=== PATIENT | male | born 1960 | race Caucasian/White ===

== ENCOUNTER 2020-08-07 08:22 | Emergency (ER) | payer SELFPAY ==
[~2020-08-07] VITALS: Ht 185.4 cm; Wt 133.8 kg
[2020-08-07 09:24] VITALS: BP 170/91
== END 2020-08-07 09:58 | disposition home or self-care (01) ==
LOC: ER 08:22
DX: M25.462 Effusion, left knee (principal); F17.210 Nicotine dependence, cigarettes, uncomplicated
CPT/HCPCS: 73562

== ENCOUNTER 2024-05-11 20:52 | Emergency (ER) | payer BC ==
[~2024-05-11] VITALS: Ht 185.4 cm; Wt 130.7 kg
--- NOTE | 2024-05-11 21:40 | DVH ---
XY CHEST TWO VIEWS ROUTINE CLINICAL HISTORY: cough/fevers x 2 weeks COMPARISON: None TECHNIQUE: Frontal and lateral view of the chest was obtained FINDINGS: Lines and Tubes: None Lungs: No focal consolidation. Pleura: No effusion. No pneumothorax. Cardiomediastinal contours: Unremarkable Bones: No acute osseous abnormality. IMPRESSION: No acute cardiopulmonary disease.
[2024-05-11] MEDS ORDERED: METH4PAK PO (22:12)
[2024-05-11] MEDS ORDERED: AZIT-43 PO (22:12)
[2024-05-11] MEDS ORDERED: BENZ100C97 PO (22:12)
--- NOTE | 2024-05-11 22:12 | ED.PDOC ---
SOB-HPI HPI Comments THIS IS A 63-YEAR-OLD MALE PRESENTS TO THE ED CHIEF COMPLAINT COUGH FEVER X2 WEEKS. PATIENT REPORTS WAS SICK WITH HIGH FEVERS 2 WEEKS AGO GOT BETTER FOR SEVERAL DAYS AND THE COUGH STARTED NO OTHER RELATED SYMPTOMS DRY COUGH CHEST PAIN, DIFFICULTY BREATHING, OR SHORTNESS OF BREATH. Chief Complaint: Flu like Time Seen by MD: 21:15 Primary Care Provider: TERRI Tripp notes: Nurses Notes, Medications, Allergies Information Source: Patient Mode of Arrival: Ambulatory Past Medical History PAST MEDICAL HISTORY: Cancer Family History Family History: Reviewed,noncontributory to illness Social History Smoker: Cigarettes Alcohol: Denies ETOH Use Drugs: Denies Drug Use Lives In: Home Constitutional: reports: fever; denies: chills, diaphoresis, fatigue, malaise, sweats, weakness, others EENTM: denies: blurred vision, double vision, ear bleeding, ear discharge, ear drainage, ear pain, ear ringing, eye pain, eye redness, hearing loss, mouth pain, mouth swelling, nasal discharge, nose bleeding, nose congestion, nose pain, photophobia, tearing, throat pain, throat swelling, voice changes, others Respiratory: reports: cough; denies: hemoptysis, orthopnea, SOB at rest, shortness of breath, SOB with excertion, stridor, wheezing, others Cardiovascular: denies: chest pain, dizzy spells, diaphoresis, Dyspnea on exertion, edema, irregular heart beat, left arm pain, lightheadedness, palpitations, PND, syncope, others Gastrointestinal: denies: abdomen distended, abdominal pain, blood streaked bowels, constipated, diarrhea, dysphagia, difficulty swallowing, hematemesis, melena, nausea, poor appetite, poor fluid intake, rectal bleeding, rectal pain, vomiting, others Genitourinary: denies: burning, dysuria, flank pain, frequency, hematuria, incontinence, penile discharge, penile sore, pain, testicle pain, testicle swelling, urgency, others Neurological: denies: dizziness, fainting, headache, left sided numbness, left sided weakness, numbness, paresthesia, pre-existing deficit, right sided numb ness, right sided weakness, seizure, speech problems, tingling, tremors, weakness, others Musculoskeletal: denies: back pain, gout, joint pain, joint swelling, muscle pain, muscle stiffness, neck pain, others Integumetry: denies: bruises, change in color, change in hair/nails, dryness, laceration, lesions, lumps, rash, wounds, others Allergic/Immunocompromised: denies: Difficulty Healing, Frequent Infections, Hives, Itching, others Hematologic/Lymphatic: denies: anemia, blood clots, easy bleeding, easy bruising, swollen glands, others Endocrine: denies: excessive hunger, excessive sweating, excessive thirst, excessive urination, flushing, intolerance to cold, intolerance to heat, unexplained weight gain, unexplained weight loss, others Psychiatric: denies: anxiety, bipolar disorder, depression, hopeless, panic disorder, schizophrenia, sleepless, suicidal, others Physical Exam General Appearance: No Apparent Distress, Normal HEENT: Normal ENT Inspection, Pharynx Normal, TMs Normal Neck: Full Range of Motion, Non-Tender, Normal, Normal Inspection Respiratory: Chest Non-Tender, Expiration, No Accessory Muscle Use, No Respiratory Distress, Rhonchi Cardiovascular: No Edema, No JVD, No Murmur, No Gallop, Normal Peripheral Pulses, Regular Rate/Rhythm Breast Exam: Deferred Gastrointestinal: No Organomegaly, Non Tender, No Pulsatile Mass, Normal Bowel Sounds, Soft Genitalia: Deferred Pelvic: Deferred Rectal: Deferred Extremities: Normal capillary refill, Normal inspection, Normal range of motion, Non-tender, No pedal edema Musculoskeletal : Apperance: Normal Neurologic: Alert, vending route driver II-XII nml as Tested, No Motor Deficits, Normal Affect, Normal Mood, No Sensory Deficits Cerebellar Function: Normal Reflexes: Normal Skin: Dry, Normal Color, Warm Lymphatic: No Adenopathy Was a procedure done? Was a procedure done?: No Differential Dx Differential Diagnosis: Bronchitis, COPD, Pneumonia X-Ray, Labs, Meds, VS Vital Signs Date Time Temp Pulse Resp B/P (MAP) Pulse Ox O2 Delivery O2 Flow Rate FiO2 05/11/24 22:22 99.0 90 18 133/84 (100) 95 99.0 05/11/24 22:22 90 18 95 Room Air* 0 21 05/11/24 20:59 99.3 94 18 133/84 (100) 95 Current Medications Medications (Trade) Dose Ordered Sig/Cullen Route Start Time Stop Time Status Last Admin Promethazine HCl (Phenergan Plain Syrup) 6.25 mg ONCE ONCE PO 05/11/24 22:15 05/11/24 22:16 DC 05/11/24 22:36 X-Ray, Labs, Meds, VS Comment PATIENT GIVEN PROMETHAZINE TO TAKE HOME. START PATIENT ON AZITHROMYCIN, MEDROL DOSEPAK, TESSALON PERLES. CHEST X-RAY WAS NEGATIVE. HE IS TO FOLLOW UP WITH HIS PCP IN 2-3 DAYS IF NO IMPROVEMENT. RETURN PRECAUTIONS GIVEN. PATIENT AGREES WITH DISCHARGE PLAN OF CARE. Time of 1ST Reevaluation: 22:08 Reevaluation 1ST: Improved Patient Education/Counseling: Diagnosis, Treatment, Prognosis, Need For Follow Up Family Education/Counseling: No Family Present Departure 1 Departure Time of Disposition: 22:08 Impression: Primary Impression: Lower respiratory infection (e.g., bronchitis, pneumonia, pneumonitis, pulmonitis) Disposition: 01 HOME / SELF CARE / HOMELESS Condition: Stable e-Prescriptions Methylprednisolone (Medrol Dosepak) 4 Mg David 4 MG PO UD for 6 Days, #21 TAB UAD Prov: MICHELE GARCIA [facility] 05/11/24 Benzonatate (Benzonatate) 100 Mg Cap 1-2 CAP PO Q4HR PRN for 5 Days, #42 CAP Prov: JOSEMICHELE Perkins [facility] 05/11/24 Azithromycin (Azithromycin) 250 Mg Tab 250 MG PO DAILY MDD 500 for 5 Days, #6 TAB 0 Refills 2 TABLETS ORALLY ON DAY ONE, THEN 1 TABLET ORALLY DAILY FOR 4 DAYS Prov: MICHELE GARCIA [facility] 05/11/24 Discharged With: Self Critical Care Note Critical Care Time?: No Stability Stability form required: No Heart Score Heart Score: Heart Score Response (Comments) Value History N/A 0 EKG N/A 0 Age 45-64 1 Risk Factors N/A 0 Troponin N/A 0 Total 1 MICHELE GARCIA [facility] May 11, 2024 22:12
[2024-05-11 22:22] VITALS: BP 133/84; PULSE 90; RESP 18; TEMP 99; O2SAT 95
[2024-05-11] MEDS: PROMETHAZINE HCL 6.25 MG/5 ML ORAL SYRUP PO ONE (22:36)
[2024-05-11] MEDS: PROMETHAZINE-DM 5 ML ORAL SYRUP ONE (22:36)
== END 2024-05-11 22:58 | disposition home or self-care (01) ==
LOC: ER 20:52
DX: J20.9 Acute bronchitis, unspecified (principal); F17.210 Nicotine dependence, cigarettes, uncomplicated
CPT/HCPCS: 71046